=== PATIENT | female | born 1970 | race Caucasian/White ===

== ENCOUNTER 2023-01-24 05:34 | Outpatient (CLI) | payer BC ==
[~2023-01-24] VITALS: Ht 162.6 cm; Wt 68.0 kg
[~2023-01-24 05:34] MED LIST: CYCL10TA9 PO; MELO-170 PO; MELO-195 PO
[2023-01-24] MEDS ORDERED: ATEN25TA PO (14:52)
[2023-01-24] MEDS ORDERED: BICT1TAB PO (14:52)
[2023-01-24] MEDS ORDERED: ATOR20TA66 PO (14:52)
[2023-01-24] MEDS ORDERED: RT-ALBUINH INH (14:52)
[2023-01-24] MEDS ORDERED: GABA800T10 PO (14:52)
== END 2023-01-24 15:05 | disposition home or self-care (01) ==
LOC: PREOP 05:34
PROVIDERS: ATTEND Surgery
DX: Z01.818 Encounter for other preprocedural examination (principal)

== ENCOUNTER 2023-02-05 07:55 | Day surgery (SDC) | payer BC ==
[~2023-02-05] VITALS: Ht 162.6 cm; Wt 68.0 kg
[~2023-02-05 07:55] MED LIST changes: +ATEN25TA PO; +ATOR20TA66 PO; +BICT1TAB PO; +GABA800T10 PO; +RT-ALBUINH INH
[2023-02-05] MEDS ORDERED: LACTATED RINGERS 1,000 ML 1,000 ML IV STA (08:01)
[2023-02-05 08:20] VITALS: BP 129/93
--- NOTE | 2023-02-05 08:44 | Progress Note-Pre Operative ---
Pre-Operative Progress Note Date of Available H&P: Jan 09, 2023 Date H&P Reviewed: Feb 05, 2023 Time H&P Reviewed: 08:41 History & Physical: H&P Reviewed, Patient Examed, No changes noted Pre-Operative Diagnosis: screening REMY VENEGAS DO Feb 05, 2023 08:44
[2023-02-05 09:30] VITALS: BP 88/54
[2023-02-05 09:35] VITALS: BP 83/52
--- NOTE | 2023-02-05 09:37 | Progress Note-Post Operative ---
Post-Operative Progess Note Surgeon (s)/Tobacco Prevention Health Educator (s) Surgeon REMY VENEGAS DO Tobacco Prevention Health Educator: PAUL WildII Pre-Operative Diagnosis screening Post-Operative Diagnosis Polyps Diverticula int hemorrhoids Procedure & Operative Findings Date of Procedure 02/05/23 Procedure Performed/Findings Colonoscopy with snare Polypectomy PROCEDURE NOTE: After informed consent was obtained, the patient was brought to the endoscopy suite, placed in bed in left lateral decubitus position. She was administered IV sedation by the OFFICE LEAD who then monitored her vitals the entire time, heart rate, blood pressure and pulse ox and the scope was inserted, pushed all the way to about 140 cm and pushed into the cecum, took a picture of appendiceal orifice and noted the ileocecal valve. I noted some early diverticula in the sigmoid colon on the way in. Then slowly withdrew the scope insufflating to look circumferentially at the bobo starting in the cecum and up the ascending colon. I found a large polyp here and elected to remove with snare and heat. It took me three snares to remove all of the polyp. Two of the pieces suctioned up, but the third was too large and elected to grab it with the capmos net. Pulled up to the hepatic flexure, then down the transverse colon; where I found another polyp. I removed this one with the snare and it suctioned up. Continued to the splenic flexure, into the descending colon down into the sigmoid and then pulled the scope completely out to remove the polyp. Placed the scope back into the rectum and found another polyp; I elected to remove it with snare. Finally, in the rectal vault I retroflexed the scope and took a picture of the internal hemorrhoids. As I pulled out I took a picture of the external hemorrhoidal skin tags. The patient tolerated the procedure. She was recovered in endoscopy suite. Recommended for repeat colonoscopy in 1 year. Anesthesia Type IV sedation by OFFICE LEAD Estimated Blood Loss Estimated blood loss (mL): scant Specimens/Packing Specimens Removed asc colon polyp transverse colon polyp rectal polyp REMY VENEGAS DO Feb 05, 2023 09:37
--- NOTE | 2023-02-05 09:38 | Endoscopy Discharge Instruct ---
Endo Procedure/Findings Findings 1.: Polyp 2.: Diverticulosis 3.: Internal Hemorrhoids Discharge Instructions - Activity: You might feel a little sleepy until tomorrow. This is due to the medicine you received to relax you. Until tomorrow, you should: NOT drive a car, operate machinery or power tools. NOT drink any alcoholic beverages. NOT make any important decisions or sign importortant papers. Do not return to work until tomorrow, unless otherwise instructed. Resume previous activities tomorrow. Diet: Start by taking liquids. If you tolerate liquids, advance to solid food. 1.: Colonoscopy in 1 year Notify Physician - If you experience excessive bleeding, unusual abdominal pain, fever, or chest pain, contact your doctor immediately. Follow-Up: Other Follow up in my office in one week REMY VENEGAS DO Feb 05, 2023 09:38
[2023-02-05 09:55] VITALS: BP 112/83
[2023-02-05 10:15] VITALS: BP 112/83
--- NOTE | 2023-02-05 12:31 | Anesthesia-General Post-Op ---
MAC Patient Condition Mental Status/LOC: Same as Preop Cardiovascular: Satisfactory Nausea/Vomiting: Absent Respiratory: Satisfactory Pain: Controlled Complications: Absent Post Op Complications Complications None Follow Up Care/Instructions Patient Instructions None needed. Anesthesiology Discharge Order Discharge Order Patient is doing well, no complaints, stable vital signs, no apparent adverse anesthesia problems. No complications reported per nursing. CALROS AUGUSTIN CRNA Feb 05, 2023 12:31
== END 2023-02-05 10:15 | disposition home or self-care (01) ==
LOC: ENDO 07:55
PROVIDERS: ATTEND Surgery
DX: Z12.11 Encounter for screening for malignant neoplasm of colon (principal); D12.2 Benign neoplasm of ascending colon; D12.3 Benign neoplasm of transverse colon; D12.8 Benign neoplasm of rectum; K57.30 Diverticulosis of large intestine without perforation or abscess without bleeding; K64.8 Other hemorrhoids; K64.4 Residual hemorrhoidal skin tags; Z28.310 Unvaccinated for COVID-19; Z87.891 Personal history of nicotine dependence